=== PATIENT | female | born 1995 | race Two or more races ===

== ENCOUNTER 2024-12-26 00:29 | Emergency (ER) | payer OTHER ==
[~2024-12-26] VITALS: Ht 170.2 cm; Wt 59.0 kg
[2024-12-26 00:54] VITALS: BP 94/60; O2SAT 96
[2024-12-26] MEDS ORDERED: METHYLPREDNISOLONE SOD SUCC 125 MG VIAL IV STA (01:12)
[2024-12-26] MEDS ORDERED: METHYLPREDNISOLONE SOD SUCC 125 MG VIAL ONE (01:14)
[2024-12-26] MEDS ORDERED: LEVALBUTEROL HCL 0.63 MG/3 ML SOLUTION IH SCH (01:15)
[2024-12-26] MEDS ORDERED: LEVALBUTEROL HCL 0.63 MG/3 ML SOLUTION IH ONE (01:20)
[2024-12-26] MEDS ORDERED: GUAIFENESIN 200 MG/10 ML BLIST.PACK PO ONE (01:31)
[2024-12-26] MEDS ORDERED: GUAIFENESIN 200 MG/10 ML BLIST.PACK PO STA (01:37)
[2024-12-26 01:50] LABS: ABG PH 7.518 (7.35-7.45); ABG PO2 100.6 mmHg (80-100); BICARBONATE 17.9 mmol/l (23-25); o2 21 %
[2024-12-26] MEDS ORDERED: ZYNCOF 20-400120 ML PO (02:38)
[2024-12-26] MEDS ORDERED: SINGULAIR10 MG PO (02:38)
[2024-12-26] MEDS ORDERED: BUDESONIDE0.5 MG/2 M IH (02:38)
== END 2024-12-26 02:41 ==
LOC: ER 00:32
PROVIDERS: General Practice
DX: J45.909 Unspecified asthma, uncomplicated (principal)